=== PATIENT | male | born 1995 | race Caucasian/White ===

== ENCOUNTER 2021-08-17 15:39 | Emergency (ER) | payer BC, SELFPAY ==
--- NOTE | ~2021-08-17 | XR_ITS ---
EXAMINATION: XR chest 2V Exam Date/Time: 08/17/2021 16:03 CDT CLINICAL HISTORY: cp Comparison: None available. RESULT: Lines, tubes, and devices: None. Lungs and pleura: Clear. Cardiomediastinal silhouette: Normal cardiomediastinal silhouette. Other: No acute osseous or upper abdominal finding. IMPRESSION: No acute cardiopulmonary process Reviewed, dictated and finalized at location K.
--- NOTE | ~2021-08-17 | CT_ITS ---
EXAMINATION: CT abdomen pelvis w con DATE: 08/17/2021 17:16 INDICATION: abdominal pain TECHNIQUE: Computed tomography (CT) of the abdomen and pelvis was performed with 100 mL Omnipaque-350 intravenous contrast. The dose-length product was 1555.95 mGy-cm. COMPARISON: None FINDINGS: Lower thorax: Unremarkable. Liver: Normal. Biliary/Gallbladder: Gallbladder is normal. No bile duct dilation. Spleen: Normal. Pancreas: No mass or duct dilation. Adrenals:No mass. Kidneys: No mass, stone, or hydronephrosis. GI tract: No small or large bowel dilation. Normal appendix. Mesentery/Peritoneum: No ascites, mass, or free air. Retroperitoneum: No mass. Pelvis: Pelvic organs are within normal limits. Bones/Soft Tissues: Soft tissues and body wall unremarkable. No acute osseous finding. Additional Findings: None. IMPRESSION: No acute abdominopelvic process. Reviewed, dictated and finalized at location K.
--- NOTE | 2021-08-17 15:40 | ECG_ITS ---
Measurements Intervals Helen Rate: 76 P: 41 PA: 143 QRS: 29 QRSD: 90 T: 16 QT: 361 QTc: 407 Interpretive Statements SINUS RHYTHM WITH MARKED SINUS ARRHYTHMIA NORMAL ECG NO PREVIOUS ECG AVAILABLE FOR COMPARISON Electronically Signed On 08-18-2021 8:00:24 CDT by Ar Price M.D.
[2021-08-17 15:44] VITALS: BP 155/102; PULSE 60; RESP 17; TEMP 36.2; O2SAT 100
[2021-08-17 16:04] LABS: Basophils Percent Auto 0.5 % (0.2-1.2); Eosinophils Absolute Auto 0.1 K/mm3 (0-0.3); Eosinophils Percent Auto 1.4 % (0-4.4); Hematocrit 47.5 % (42.0-52.0); Hemoglobin 15.7 g/dL (14.0-18.0); Immature Granulocyte Absolute 0.01 K/mm3 (0.00-0.031); Immature Granulocyte Percent A 0.2 % (0-0.5); Lymphocytes Absolute Auto 2.02 K/mm3 (0.9-3.2); Lymphocytes Percent Auto 30.8 % (18.3-44.2); Mean Corpuscular HGB Conc 33.1 g/dl (32-36); Mean Corpuscular Volume 93.9 fl (80-100); Mean Platelet Volume 10.9 fl (7.4-10.4); Monocytes Absolute Auto 0.6 K/mm3 (0.1-0.6); Monocytes Percent Auto 8.5 % (2.6-8.5); Neutrophils Absolute Auto 3.9 K/mm3 (1.3-6.7); Neutrophils Percent Auto 58.6 % (45.5-73.1); Platelet Count Result 236 k/mm3 (150-375); Red Blood Count 5.06 M/mm3 (4.6-6.20); Red Cell Distribution Width 12.5 % (11.5-14.5); White Blood Count 6.6 K/mm3 (4.5-10.0)
[2021-08-17 16:14] LABS: Alanine Aminotransferase 42 U/L (4-50); Albumin Level 4.9 g/dL (3.5-5.1); Alkaline Phosphatase 82 U/L (38-126); Anion Gap 9 mmol/L (8-16); Aspartate Amino Transferase 34 U/L (17-59); Bilirubin,Total 0.4 mg/dL (0.2-1.3); Blood Urea Nitrogen 12 mg/dL (9-20); Calcium 8.8 mg/dL (8.4-10.2); Carbon Dioxide 27 mmol/L (22-30); Chloride 106 mmol/L (98-107); Estimated CRCL calculation 174 ml/min; Estimated Glomerular Filt Rate > 60; Glucose 106 mg/dL (65-110); Lipase 737 U/L (23-300); Potassium 4.4 mmol/L (3.4-5.0); Sodium 142 mmol/L (137-145)
[2021-08-17 16:25] LABS: Troponin I < 0.012 ng/mL (0.000-0.034)
[2021-08-17 16:41] LABS: INR 0.9; Partial Thromboplastin Time 25.2 SECONDS (22.3-36.8); Prothrombin Time 12.2 Seconds (11.1-14.7)
--- NOTE | 2021-08-17 16:59 | ED.CHESTPAIN ---
HPI - Chest Pain General Chief Complaint: Chest Pain Stated Complaint: CHEST PAIN Time Seen by Provider: 08/17/21 16:48 History of Present Illness HPI narrative: 26-year-old male presents emergency room for evaluation of abdominal pain that began at 330 this afternoon. Patient states that he was sitting around on the couch when he began to develop pain in his epigastrium that was burning. Patient denies any nausea associated with abdominal pain. Patient denies fever. Patient states that he has not had this type of pain before. Denies any abdominal surgeries. Patient states that he is a social alcohol user, and had a couple of alcoholic drinks last night after work. Patient states that his father has a history of Crohn's disease. Patient also reports history of loose stools and diarrhea since the age of 14. Denies any follow-up with a GI doctor Related Data Allergies Allergy/AdvReac Type Severity Reaction Status Date / Time No Known Allergies Allergy Verified 08/17/21 15:41 Review of Systems Review of Systems: CONSTITUTIONAL: Denies fever, chills, or sweats. EYES: Denies visual changes, redness, or discharge. ENT: Denies rhinorrhea, congestion, sore throat, or otalgia. CARDIOVASCULAR: Denies chest pain, palpitations, or edema. RESPIRATORY: Denies cough or dyspnea. GASTROINTESTINAL: Reports abdominal pain, diarrhea GENITOURINARY: Denies dysuria or hematuria. SKIN: Denies rash or itching. MUSCULOSKELETAL: Denies back pain, joint pain, or myalgia. NEUROLOGIC: Denies headache, numbness, dizziness, or weakness. PSYCHIATRIC: Denies anxiety or depression. Exam Narrative: GENERAL: Well-appearing, well-nourished, and in no acute distress. HEAD: Normocephalic, atraumatic. EYES: PERRLA and EOMI. CHEST: Clear to auscultation. No respiratory distress. No wheezes rales or rhonchi HEART: Regular rate and rhythm. No murmur heard. Normal peripheral pulses. ABDOMEN: Soft, periumbilical and epigastric tenderness, normal active bowel sounds. EXTREMITIES: Normal range of motion. No edema. SKIN: Warm, dry, no rash. NEURO: No focal deficits. Alert and oriented x3. PSYCH: Normal mood and affect. Course Vital Signs Vital signs: Vital Signs Temperature 36.2 C L 08/17/21 15:44 Pulse Rate 60 04/23/22 15:44 Respiratory Rate 17 08/17/21 15:44 Blood Pressure 155/102 H 08/17/21 15:44 Pulse Oximetry 100 08/17/21 15:44 Temperature 36.2 C L 08/17/21 15:44 Pulse Rate 60 08/17/21 15:44 Respiratory Rate 17 08/17/21 15:44 Blood Pressure 155/102 H 08/17/21 15:44 Pulse Oximetry 100 08/17/21 15:44 MDM - Chest Pain MDM Narrative Medical decision making narrative: 26-year-old male presents emergency room with acute onset of epigastric pain. Patient described pain as a sharp and constant. CBC and CMP were unremarkable. Lipase was 735. CT scan with contrast showed no acute intra-abdominal abnormalities. Patient does have a family history of Crohn's disease, so will refer patient to GI for further follow-up. EKG showed normal sinus rhythm with no acute abnormalities. Chest x-ray showed no cardiopulmonary abnormality. Patient responded well to a GI cocktail. CRP and sed rate are pending. Medical Records Data Attestation: I reviewed the patient's medical records. Lab Data Attestation: I reviewed the patient's lab results. Result diagrams: 08/17/21 15:56 08/17/21 15:56 Labs: Lab Results 08/17/21 08/17/21 08/17/21 Range/Units 15:56 15:56 15:56 WBC 6.6 (4.5-10.0) K/mm3 RBC 5.06 (4.6-6.20) M/mm3 Hgb 15.7 (14.0-18.0) g/dL Hct 47.5 (42.0-52.0) % MCV 93.9 (80-100) fl MCH 31.0 (26-34) pg MCHC 33.1 (32-36) g/dl RDW 12.5 (11.5-14.5) % Plt Count 236 (150-375) k/mm3 MPV 10.9 H (7.4-10.4) fl Immature Gran % (Auto) 0.2 (0-0.5) % Neut % (Auto) 58.6 (45.5-73.1) % Lymph % (Auto) 30.8 (18.3-44.2) % [place] % (Auto) 8.5 (2.6-8.5) %
[2021-08-17] MEDS: SODIUM CHLORIDE 0.9% IV 1,000 ML 999 ML IV CONT (17:24)
[2021-08-17] MEDS: BELLADONNA ALK/PHENOB ELIX 10 ML, MAG HYDROX/ALUMINUM HYD/SIMETH 30 ML, LIDOCAINE HCL 2... PO (17:25)
[2021-08-17] MEDS: PANTOPRAZOLE SODIUM IV 40 MG VIAL IV PUSH (18:05)
[2021-08-17 18:09] LABS: CRP < 0.5 mg/dL (<1.0)
[2021-08-17 18:25] LABS: Erythrocyte Sedimentation Rate 5 mm/hr (0-20)
== END 2021-08-17 18:14 | disposition home or self-care (01) ==
PROVIDERS: Emergency Medicine; Emergency Provider Nurse Practitioner Family; PCP Family Medicine
DX: K21.9 Gastro-esophageal reflux disease without esophagitis (principal); R10.13 Epigastric pain
CPT/HCPCS: 36415; 71046; 74177; 80053; 83690; 84484; 85025; 85610; 85652; 85730; 86140; 93005; 96361; 96374; 99284; A9270; C9113; J7030; Q9967

== ENCOUNTER 2023-02-24 08:55 | Emergency (ER) | payer BC, SELFPAY ==
[2023-02-24 09:14] VITALS: BP 120/67; PULSE 77; RESP 12; TEMP 37.9; O2SAT 100
--- NOTE | 2023-02-24 09:14 | ED.EYEPROB ---
HPI - Eye Problem General Chief complaint: Eye Problems Stated complaint: Right Eye Irritation Source: patient Mode of arrival: ambulatory Limitations: no limitations History of Present Illness HPI Narrative: 28-year-old male presented for complaint of right eye irritation for 4 days. Endorses waking this morning with mild swelling and crust to the lid. He denies eye swollen shut, purulent drainage, or redness. Denies headache, vision changes, or foreign body sensation. Denies injury. Has been using otc eye drops. chief complaint: eye pain Related Data Allergies Allergy/AdvReac Type Severity Reaction Status Date / Time No Known Allergies Allergy Verified 02/24/23 09:05 Review of Systems Review of Systems: CONSTITUTIONAL: Denies body aches, fever, chills EYES:Endorses swelling, drainage to right eye; denies FB sensation, photophobia, visual changes ENT: Denies rhinorrhea, congestion, sore throat, or otalgia. CARDIOVASCULAR: Denies chest pain, palpitations RESPIRATORY: Denies cough or dyspnea. GASTROINTESTINAL: Denies abdominal pain, nausea, vomiting, or diarrhea. SKIN: Denies rash, itching, or wounds. MUSCULOSKELETAL: Denies back pain, joint pain, or myalgia. NEUROLOGIC: Denies headache, numbness, tingling, or weakness. All systems reviewed & are unremarkable except as noted in HPI and below PMFSH Past Medical History Medical History (Updated 02/24/23 @ 10:01 by Ana Tapia APRN) No pertinent past medical history Comments At time of signature, I have reviewed and agree with nursing past medical, surgical, social and family history unless otherwise noted. Please see nursing chart for further information. There is no relevant family history pertinent to the presenting complaint Exam Narrative: GENERAL: Well-appearing HEAD: Normocephalic, atraumatic. EYES: mild right upper eye lid swelling. clear drainage to right eye. no conjunctival injection, PERRLA, EOMI. Lid eversion shows no foreign body. ENT: Mucous membranes pink and moist. No rhinorrhea. TMs normal bilaterally. Throat normal. Uvula midline. CHEST: Clear to auscultation. HEART: Regular rate and rhythm. ABDOMEN: Soft, nontender, nondistended SKIN: Warm, dry, no rash. Normal skin turgor. NEURO: No focal deficits. Alert and oriented x3 PSYCH: Normal affect. Course Course Emergency Course: Patient is aware of diagnosis, understands and agrees to treatment plan. Anticipatory guidance given. Patient agrees to follow-up as directed and is aware of reasons to seek care at the emergency department. Portions of this record may have been created with voice recognition software Level of Care: Express Care Visit Vital Signs Vital signs: Vital Signs Temperature 100.2 F H 02/24/23 09:14 Pulse Rate 77 02/24/23 09:14 Respiratory Rate 12 02/24/23 09:14 Blood Pressure 120/67 02/24/23 09:14 Pulse Oximetry 100 02/24/23 09:14 Oxygen Delivery Room Air 02/24/23 09:14 Temperature 100.2 F H 02/24/23 09:14 Pulse Rate 77 02/24/23 09:14 Respiratory Rate 12 02/24/23 09:14 Blood Pressure 120/67 02/24/23 09:14 Pulse Oximetry 100 02/24/23 09:14 Oxygen Delivery Room Air 02/24/23 09:14 Procedures FB Removal Eye Foreign Body #1: Foreign Body Removal Date: 02/24/23 Location: eye (R) Topical anesthetic used: tetracaine Evidence of corneal penetration: No Technique: eye wash bottle Procedure performed under: other ( Wood's lamp) Patient tolerated procedure: well and no complications Foreign Body Removal Narrative: Eye irrigated with eye wash, no corneal abrasion or FB noted on exam. MDM - Eye Problem MDM Narrative Medical decision making narrative: Discussed physical exam findings; no corneal abrasion or FB noted on exam. Advised supportive measures and signs/symptoms to go to the ER. Pt is appropriate for outpt treatment and f/u. Differential
== END 2023-02-24 09:40 | disposition home or self-care (01) ==
PROVIDERS: Emergency Provider Nurse Practitioner Family
DX: H57.11 Ocular pain, right eye (principal); K21.9 Gastro-esophageal reflux disease without esophagitis
CPT/HCPCS: 99213; A9270; G0463